=== PATIENT | female | born 1975 | race Caucasian/White ===

== ENCOUNTER 2021-01-22 08:14 | Outpatient (REF) | payer BC, SELFPAY ==
[2021-01-22 14:33] LABS: Anion Gap 9.3 mmol/L (3-11); BUN 9 mg/dL (7-18); CO2 26.7 mmol/L (21.0-32.0); CREATININE 0.7 mg/dL (0.55-1.02); Calcium 8.4 mg/dL (8.5-10.1); Calculated LDL 144 mg/dL (<100); Chloride 105 mmol/L (98-107); Cholesterol 226 mg/dL (<200); Glucose 91 mg/dL (74-106); HDL Cholesterol 53 mg/dL (40-60); Potassium 3.7 mmol/L (3.5-5.1); Sodium 141 mmol/L (136-145); TSH (W/Ref FT4) 1.16 uIU/mL (0.36-3.74); Triglyceride 146 mg/dL (<150)
== END 2021-01-22 08:15 | disposition home or self-care (01) ==
LOC: NCHCN 08:14
PROVIDERS: Visit Provider Nurse Practitioner Family
DX: Z00.00 Encounter for general adult medical examination without abnormal findings (principal); Z13.29 Encounter for screening for other suspected endocrine disorder; Z13.220 Encounter for screening for lipoid disorders; G43.809 Other migraine, not intractable, without status migrainosus; I63.89 Other cerebral infarction
CPT/HCPCS: 80048; 80061; 84443

== ENCOUNTER 2021-12-29 03:04 | Emergency (ER) | payer BC, SELFPAY ==
[2021-12-29] VITALS (22 sets, daily range): BP systolic 130–154; BP diastolic 68–82; PULSE 65–102; RESP 8–16; TEMP 36.2; O2SAT 98–100
--- NOTE | 2021-12-29 03:23 | ED.GENADUL_ITS ---
Discharge Plan Disposition Patient Disposition: HOME Condition: Stable Discharge Details Clinical Impression: Hypokalemia, Hypomagnesemia Primary Care Provider: Unknown,Unknown ED Provider: German Hussein Home Meds and New Rx's Prescriptions: Continued riboflavin (vitamin B2) 100 mg Tablet 200 mg PO DAILY coenzyme Q10 [CoQ-10] 100 mg Capsule 300 mg PO DAILY magnesium citrate 100 mg Tablet 750 mg PO DAILY Discharge Instructions Instructions: Hypokalemia (ED), Hypomagnesemia (ED) Additional Instructions: your potassium and magnesium levels were mildly low follow up with your primary care provider in 1-2 weeks if you feel more ill, have difficulty breathing or severe pain return to the emergency department Medical Decision Making 46 yo female with no chronic medical problems comes in with complaints of frequent urination and feeling shaky. She states this started tonight after she consumed a lot of sugar and is worried about diabetes. Her sugar on arrival is 101 by fingerstick. She denies any fevers, chills, chest pain or abdominal pain, no vomit, no rashes. She arrives stable though appears anxious. She is caox4 and has no focal motor or sensation deficits, clear lung souds and soft abdomen. I suspect this could be anxiety and unlikely diabetic issue given normal blood glucose. Will check cbc, cmp and reassess. She has no chest pain or pressure so doubt entities such as acs, pe or dissection. no motor or sensation deficits, nih of 0 so doubt cva. labs show mildly low k and mag otherwise unremarkable. She is stable, resting in no distress in the stretcher and appears less anxious. Given reassuring workup feel she is stable for d/c and can f/u with pcp, will have her increase dietary intake of k and mag and return precautions given Differential Diagnosis Differential Diagnosis: anxiety, uti, cystitis, electrolyte abnormality Lab Data Lab results reviewed: Yes I reviewed the patient's lab results. ECG Data Attestation: I personally reviewed and interpreted this ECG (s) as follows: Prior ECG tracings: not available for review Interpretation: sinus rhythm, rate of [address] t wave ischemic findings HPI General Mode of arrival: ambulatory . Date/Time Provider Initiated Documentation: 12/29/21 03:07 . Limitations to Documentation: no limitations . Information obtained by: patient . History of Present Illness 46 year old F presents to the emergency department with the chief complaint of frequent urination, described as moderate, and it has been constant. No relieving factors improve symptom(s), No exacerbating factors reported . Patient notes other (feels shaky). Patient did receive the following treatments prior to arrival, none Related Data Home Medications Medication Instructions Recorded Confirmed coenzyme Q10 100 mg capsule 300 mg PO DAILY 12/29/21 12/29/21 (CoQ-10) magnesium citrate 100 mg tablet 750 mg PO DAILY 12/29/21 12/29/21 riboflavin (vitamin B2) 100 mg 200 mg PO DAILY 12/29/21 12/29/21 tablet Allergies Allergy/AdvReac Type Severity Reaction Status Date / Time No Known Drug Allergies Allergy Unverified 12/29/21 03:32 milk AdvReac Mild Unverified 12/29/21 03:32 General Stated Complaint: Diabetes JUSTUS: 3 Review of Systems All systems reviewed & are unremarkable except as noted in HPI and below Constitutional Constitutional: Denies chills and Denies fever(s) Gastrointestinal Gastrointestinal: Denies abdominal pain, Denies nausea and Denies vomiting Genitourinary Genitourinary: Denies dysuria Integumentary/Breasts Skin/Breast: Denies rash PFSH All Active Problems (Updated 12/29/21 @ 04:59 by German Hussein MD) Hypokalemia (Acute) Hypomagnesemia (Acute) Social History Smoking/Tobacco Use Status: Never Smoking risk assessment performed?: Yes Alcohol Intake: former Substance use type: does not use Exam Const General: anxious Orientation: alert HENMT Head: normal to inspection Ears: external ears normal General nose exam: external nose normal Mouth: moist mucous membranes Eyes General: appearance normal, both eyes and all related structures Neck Neck: normal visual inspection Resp Effort & Inspection: normal respiratory effort and able to speak in complete sentences Cardio Rate: regular rate Skin General skin exam: no rashes or lesions noted Neuro General: patient alert and patient oriented x3 Extrem General: normal to inspection Psych Mental Status: mental status grossly normal Course Vital Signs Vital signs: Vital Signs Temperature 36.2 C L 12/29/21 03:11 Pulse 97 H 12/29/21 03:11 Respiratory Rate 16 12/29/21 03:11 Blood Pressure 154/82 H 12/29/21 03:11 Pulse Oximetry 100 12/29/21 03:11 Temperature 36.2 C L 12/29/21 03:11 Pulse 97 H 12/29/21 03:11 Respiratory Rate 16 12/29/21 03:11 Respiratory Effort Non-Labored 12/29/21 03:14 Blood Pressure 154/82 H 12/29/21 03:11 Blood Pressure Position Sitting 12/29/21 03:11 Pulse Oximetry 100 12/29/21 03:11 Oxygen Delivery Method Room Air 12/29/21 03:11 Oxygen Flow Rate 0 12/29/21 03:11
[2021-12-29] MEDS: Normal Saline 1,000 ML 1000 ML IV (03:27)
--- NOTE | 2021-12-29 03:32 | NUR.NOTE ---
Nursing Note: Patient declined COVID test.
[2021-12-29 03:37] LABS: Abs Immature Grans 0.02 10^3/uL (0.0-0.06); Absolute Basophil Count 0.04 10^3/uL (0.0-0.2); Absolute Eosinophil Count 0.16 10^3/uL (0.0-0.7); Absolute Lymphocyte Count 4.73 10^3/uL (1.2-3.4); Absolute Monocyte Count 0.83 10^3/uL (0.1-0.8); Absolute Neutrophil Count 5.34 10^3/uL (1.2-6.7); Basophils % 0.4; Eosinophils % 1.4; HCT 42.9 % (36.0-46.0); Immature Grans % 0.2; Lymphocytes % 42.5; MCH 28.4 pg (27.0-33.0); MCHC 32.6 % (32.0-36.0); MCV 87 fL (80-95); MPV 9.6 fL (8.0-11.0); Monocytes % 7.5; Platelet Count 299 10^3/uL (130-400); RBC 4.93 10^6/uL (3.93-5.22); RDW 12.7 % (11.7-14.6); RDW-SD 40.3 fL; WBC 11.13 10^3/uL (4.4-10.8)
[2021-12-29 03:42] LABS: BE (Venous) -3 mmol/L (-2-3); HCO3 (Venous) 23 mmol/L (23-28); O2 Sat (Venous) 84 %; TCO2 (Venous) 24 mmol/l (24-29); pCO2 (Venous) 40 mmHg (41-51); pH (Venous) 7.37 (7.31-7.41); pO2 (Venous) 50 mmHg
--- NOTE | 2021-12-29 03:45 | RT.EKG_ITS ---
APPROVED REPORT Exam: Resting ECG Reason for Exam: tremors Patient Location: E HR:70 bpm ECG Measurements Heart Rate 70 AXIS MI 196 P 61 QRSd 81 QRS 38 QT 410 T 28 QTc 442 Conclusion Sinus rhythm...normal P axis, V-rate 60- 99
[2021-12-29 03:52] LABS: ALT 18 U/L (14-59); AST 12 U/L (15-37); Albumin 4.1 g/dL (3.4-5.0); Alkaline Phosphatase 79 U/L (46-116); Anion Gap 10.1 mmol/L (3-11); BUN 13 mg/dL (7-18); Bilirubin, Total 0.5 mg/dL (0.2-1.0); CO2 24.9 mmol/L (21.0-32.0); CREATININE 0.8 mg/dL (0.55-1.02); Calcium 8.7 mg/dL (8.5-10.1); Chloride 103 mmol/L (98-107); Estimated GFR 91.97 (mL/min/1.73m2); Glucose 114 mg/dL (74-106); Sodium 138 mmol/L (136-145)
[2021-12-29 03:54] LABS: ETHANOL BLOOD < 3.0 mg/dL (<10)
[2021-12-29 03:57] LABS: Lipase 130 U/L (73-393); Magnesium 1.7 mg/dL (1.8-2.4); Troponin I < 50 ng/L (<or=60)
[2021-12-29 04:30] LABS: Bilirubin Negative (Negative); Blood Negative (Negative); Clarity Clear (Clear); Glucose Negative (Negative); Ketones Negative (Negative); Leukocyte Esterase Negative (Negative); Nitrite Negative (Negative); Urobilinogen 0.2 EU/dL (Up TO 0.2)
[2021-12-29 04:44] LABS: TSH (W/Ref FT4) 3.35 uIU/mL (0.36-3.74)
== END 2021-12-29 05:34 | disposition home or self-care (01) ==
PROVIDERS: Emergency Provider Emergency Medicine
DX: E87.6 Hypokalemia (principal); E83.42 Hypomagnesemia
CPT/HCPCS: 36415; 36416; 80053; 81025; 82805; 82962; 83690; 87635; 93005; 96360; 96361; 99284; 80320; 81003; 83735; 84443; 84484; 85025; 93010

== ENCOUNTER 2022-02-14 00:12 | Outpatient (CLI) | payer BC, SELFPAY ==
--- NOTE | 2022-02-14 | DI.MRI_ITS ---
Exam(s) MR LOWER JOINT LT WO EXAM: MR LOWER JOINT LT WO CLINICAL HISTORY: TARSAL TUNNEL SYNDROME, LT,G57.52,LT HEEL PAIN,,M79.672 TECHNIQUE: Multiplanar multisequence MRI was performed without intravenous contrast. COMPARISON: DX Foot L from 12/06/2021 FINDINGS: SKIN: No evidence of ulcer nor subcutaneous tract. BONES/JOINTS: No evidence of fracture nor bone contusion. Mild amount of increased fluid in the tibi otalar joint. The talar dome appears unremarkable. The ankle mortise is maintained. There is no ev idence of para-articular ganglion.There is no evidence of osseous tarsal coalition. LIGAMENTS: Syndesmotic anterior and posterior tibiofibular ligaments appear intact. Anterior talofibu lar ligament appears intact but slightly thinner than expected in this age group. There is, however, no abnormal signal in this ligament nor in the anterolateral gutter. The posterior talofibular liga ment appears unremarkable. On the medial aspect of the ankle the deltoid ligament appears intact. SINUS TARSI: There is effacement of the normal fat signal in this space. Interosseous ligament is in tact. There is no evidence of sinus tarsi ganglion cyst. ANTEROLATERAL GUTTER:There is no abnormal signal/abnormal tissue in this space. MUSCULOTENDINOUS STRUCTURES: Achilles tendon: Mild increased signal but no thickening to suggest chronic tendinitis. No high-grad e tear. There is some mild fluid in the pre Achilles-retrocalcaneal bursa. Plantar fascia: There is some mild increased intrasubstance signal in the plantar fascia and mild int raosseous edema in the inferior calcaneus. Small inferior calcaneal spur noted. There is no abnorma l nodularity in the plantar fascia. Anterior Extensor tendons: Unremarkable. Medial Tendons: Posterior Tibialis: Unremarkable. No tear or tenosynovitis evident. Flexor Digitorum longus: Unremarkable. No tear or tenosynovitis evident. Flexor Hallicus longus: Unremarkable. No tear or tenosynovitis evident. Lateral Tendons: There is very mild increased fluid within the peroneus longus and brevis tendon javier ths. No tears of these tendons evident. SOFT TISSUES: Unremarkable. OTHER FINDINGS: No evidence of osseous tarsal coalition. No abnormal intraosseous signal in the bone s of the midfoot and visualized metatarsals. IMPRESSION: 1. Mild increased signal in a non thickened Achilles tendon and small amount of fluid in the pre Achi lles-retrocalcaneal bursa. 2. Some increased lung truly orientated signal within the plantar fascia at level of inferior calcane al spur where there is also some mild increased intraosseous signal at this level. Correlation with any clinical findings of plantar fasciitis recommended. 3. Mild thinning of the anterior talofibular ligament which may be related to prior non recent versio n injury trauma. There is no abnormal signal at this location on today's study nor abnormal signal i n the anterolateral gutter of the ankle. Posterior talofibular ligament appears unremarkable. 4. Mild tenosynovitis of the peroneus longus and brevis tendons at the malleolar level. However, th ere are no tears of these tendons evident. DATA REPOSITORY:
== END 2022-02-14 00:32 ==
PROVIDERS: Visit Provider Student in an Organized Health Care Education/Training Program
DX: M79.672 Pain in left foot (principal); G57.52 Tarsal tunnel syndrome, left lower limb
CPT/HCPCS: 73721

== ENCOUNTER 2022-05-17 10:00 | Emergency (ER) | payer BC, SELFPAY ==
[2022-05-17 10:03] VITALS: BP 162/91; PULSE 102; RESP 18; TEMP 36.7; O2SAT 100
[2022-05-17 10:12] VITALS: RESP 18
--- NOTE | 2022-05-17 10:15 | DI.CT_ITS ---
Exam(s) CT ABDOMEN PELVIS W EXAM: CT ABDOMEN PELVIS W CLINICAL HISTORY: left side abd pain. TECHNIQUE: Imaging Protocol: Axial computed tomography images with coronal and sagittal reformatted images were created and reviewed CONTRAST MATERIAL: Intravenous: Omnipaque-350 100cc Oral: None COMPARISON: No exams were available for comparison FINDINGS: VISUALIZED LUNG BASES: No nodules nor pleural effusions evident. ABDOMEN: There is no ascites. LIVER: There are no focal hepatic lesions evident. No dilated intrahepatic ducts. GALLBLADDER/BILIARY: No obvious gallbladder pathology. CBD is not dilated. PANCREAS: No evidence of pancreatic mass nor dilatation of the pancreatic duct. SPLEEN: Spleen is not enlarged. No obvious intrasplenic lesions. Splenic and portal veins are paten t. ADRENALS: There are no significant adrenal masses. KIDNEYS:No cysts evident. No solid renal masses. There is a solitary 2-3 millimeter calculus at the midpole level of the right kidney. No calculi seen in the ureters nor within the urinary bladder.. ABDOMINAL AORTA: Abdominal aorta is not enlarged. LYMPH NODES:There is no retroperitoneal nor paraaortic adenopathy. ABDOMINAL WALL: No evidence of significant anterior abdominal wall nor inguinal hernia. GI: There is no evidence of bowel obstruction, free air, nor abscess. PELVIS: GI: No evidence of appendicitis.No evidence of sigmoid diverticulitis. LYMPH NODES: There is no intrapelvic nor inguinal adenopathy. REPRODUCTIVE: There is a 2.7 x 2.6 x 2.5 cm cyst in left ovary. Right ovary unremarkable. Uterus un remarkable. No free fluid. URINARY BLADDER: No calculi nor obvious masses evident OSSEOUS: No fractures and no significant osseous lesions. IMPRESSION: 1. There is a solitary nonobstructive 3 millimeter calculus at the midpole level of the right kidney. No other renal findings. No calculi in the urinary bladder. 2. There is a 2.7 cm cyst in left ovary. No other adnexal findings. No free fluid in the pelvis. 3. No acute findings evident. 4. RADIATION DOSE DELIVERED: 1,454.98mGy.cm Total DLP DATA REPOSITORY: All CT scans at this facility are submitted to the National Radiology Data Registry (NRDR) Dose Index Registry (DIR) with the [employer] (A[employer]). RADIATION OPTIMIZATION: All CT scans at this facility use at least one of these dose optimization te chniques: automated exposure control; mA and/or kV adjustment per patient size (includes targeted exa ms where dose is matched to clinical indication); or iterative reconstruction.
--- NOTE | 2022-05-17 10:23 | W.ED.GENAD ---
Discharge Plan Disposition Patient Disposition: Home Condition: Stable Discharge Details Clinical Impression: Bloody stools Primary Care Provider: Jada Hanna ED Provider: Seun Garcia Home Meds and New Rx's Prescriptions: New potassium chloride 10 mEq capsule, extended release 10 meq PO DAILY Qty: 7 0RF Continued riboflavin (vitamin B2) 100 mg Tablet 200 mg PO DAILY coenzyme Q10 [CoQ-10] 100 mg Capsule 300 mg PO DAILY magnesium citrate 100 mg Tablet 750 mg PO DAILY cholecalciferol (vitamin D3) 100 mcg (4,000 unit) Capsule 100 mcg PO DAILY Discharge Instructions Instructions: Rectal Bleeding (ED) Additional Instructions: Please continue to monitor your symptoms and if you have any significant worsening of your symptoms, signs of rectal hemorrhaging, fever chills or worsening abdominal pain feel free to return the emergency department for reassessment and further evaluation as needed. Otherwise continue to take your medications as prescribed and at your primary care visit later this week discussed with the your persistent slightly low potassium and your rectal bleeding. Referrals: Jada Hanna [Primary Care Provider] - 05/22/22 (Keep your appointment as previously arranged) Medical Decision Making Patient presenting to the emergency department for chief complaint of GI bleed and abdominal pain. Patient reports this morning with bowel movement she had bright red blood in toilet with morning bowel movement. She does states she noted a little bit a couple days ago but did not think much of it. Today's per her report was much more significant. She has felt off for the past couple months and not herself. Does endorse some mild left sided abdominal pain otherwise denies all symptoms. Physical exam is unremarkable shows no reproducible abdominal tenderness, no CVA tenderness, otherwise unremarkable exam. Patient does state history of ovarian cyst but denies any vaginal symptoms, history of kidney stones but again denies urinary symptoms, denies all other past medical history states she is otherwise healthy. She has not had a colonoscopy so unaware of any GI issues and no reported family pertinent history. Will order labs including urinalysis will perform Hemoccult rectal exam, and CT imaging. Patient denies any need for interventions pending results but will continue to monitor. Review of CBC shows no signs of anemia and actually shows elevated RBCs and hematocrit all other values within normal limits. CMP shows slightly reduced potassium at 3.4, otherwise unremarkable CMP, magnesium within normal limits, normal lipase, normal coagulation studies, patient is not and urine is unremarkable/nondiagnostic. Rectal exam unremarkable for any obvious source of bleeding and Hemoccult card was negative. Will perform CT imaging. CT imaging reveals no acute findings. Does state Left adnexal cyst, Fatty infiltration liver, Nonobstructive right nephrolithiasis. I do not feel any of these are contributing factors to patient's presenting symptoms. Given stable vital signs, no tachycardia no hypotension no signs of anemia I do feel the patient is able to follow-up on outpatient basis for further evaluation of her episodes of rectal bleeding. At this time I do not feel this is an infectious source, no trauma, and no obvious medication or supplement reaction. Did instruct patient not to take any NSAIDs. I did thoroughly discussed with patient return and follow-up precautions especially for worsening symptoms. She does report that she already has a primary care visit arranged for this which I informed her to discuss her low potassium and bloody stools. After discussion of diagnosis and plan of care patient has no further needs, questions, or concerns and states clear understanding to return to the emergency department for any worsening symptoms. This documentation was generated using [employer] dictation system, please disregard any oddities of phrase or misspellings. Medical Records Medical records reviewed: Yes I reviewed the patient's medical records. Medical records narrative: Reviewed previous emergency department visit where patient did have similar complaint of not feeling right. She was noted to have hypokalemia and hypomagnesemia. These were stable for patient to be able to take p.o. meds and be discharged. Imaging Data Radiologic Study: Attestation: I personally reviewed and interpreted this imaging study as follows: Imaging: CT Scan Radiologist's impression: Exam: CT Abdomen And Pelvis With Contrast Exam date and time: 05/17/2022 11:09 AM Age: 46 years old Clinical indication: Abdominal pain; Acute; Patient HX: Blood in stool TECHNIQUE: Imaging protocol: Computed tomography of the abdomen and pelvis with contrast. Contrast material: OMNI 350; Contrast volume: 100 ml; Contrast route: INTRAVENOUS (IV); COMPARISON: LOWER JOINT LT WO 02/14/2022 7:58 AM FINDINGS: Diaphragm: Small hiatal hernia. Liver: Fatty infiltration of the liver. The liver measures 17.7 cm Gallbladder and bile ducts: Normal. No calcified stones. No ductal dilation. Pancreas: Normal. No ductal dilation. Spleen: Normal. No splenomegaly. Adrenal glands: Normal. No mass. Kidneys and ureters: Nonobstructive right nephrolithiasis. No hydronephrosis bilaterally. Stomach and bowel: No dilatation or obstruction of large or small bowel. Appendix: Normal appendix. Intraperitoneal space: Unremarkable. No free air. No significant fluid collection. Vasculature: Unremarkable. No abdominal aortic aneurysm. Lymph nodes: Unremarkable. No enlarged lymph nodes. Urinary bladder: Unremarkable as visualized. Reproductive: Mild line uterus. Left adnexal cyst measuring 2.6 cm. Bones/joints: Unremarkable. No acute fracture. Soft tissues: Fat containing umbilical hernia. IMPRESSION: 1. No acute findings. 2. Left adnexal cyst. 3. Fatty infiltration liver. 4. Nonobstructive right nephrolithiasis. HPI General Mode of arrival: ambulatory. Date/Time Provider Initiated Documentation: 05/17/22 10:01. Limitations to Documentation: no limitations. Information obtained by: patient, family, RN notes reviewed and old records reviewed. History of Present Illness 46 year old F presents to the emergency department with the chief complaint of Abdominal pain, GI bleed, described as mild, with intensity rated at 3. Quality is described as aching, and is localized to the abdomen and left. Patient started experiencing this day(s) (2) and it has been intermittent. No relieving factors improve symptom(s), No exacerbating factors reported . Patient notes no other symptoms.. Patient did receive the following treatments prior to arrival, none Related Data Home Medications Medication Instructions Recorded Confirmed coenzyme Q10 100 mg capsule 300 mg PO DAILY 12/29/21 05/17/22 (CoQ-10) magnesium citrate 100 mg tablet 750 mg PO DAILY 12/29/21 05/17/22 riboflavin (vitamin B2) 100 mg 200 mg PO DAILY 12/29/21 05/17/22 tablet cholecalciferol (vitamin D3) 100 100 mcg PO DAILY 05/17/22 05/17/22 mcg (4,000 unit) capsule potassium chloride 10 mEq 10 meq PO DAILY #7 caps 05/17/22 capsule,extended release Previous Rx's Medication Instructions Recorded potassium chloride 10 mEq 10 meq PO DAILY #7 caps 05/17/22 capsule,extended release Allergies Allergy/AdvReac Type Severity Reaction Status Date / Time No Known Drug Allergies Allergy Unverified 12/29/21 03:32 milk AdvReac Mild Unverified 05/17/22 10:08 General Stated Complaint: GenMedical JUSTUS: 3 Review of Systems Constitutional Constitutional: Denies chills, Denies fever(s), Reports malaise and Denies poor appetite Cardiovascular Cardiovascular: Denies chest pain and Denies dyspnea Respiratory Respiratory: Denies cough and Denies dyspnea Gastrointestinal Gastrointestinal: Reports as per HPI, Reports abdominal pain, Denies melena, Reports hematochezia, Denies change in bowel habits, Denies constipation, Denies diarrhea, Denies nausea and Denies vomiting Genitourinary Genitourinary: Denies hematuria, Denies pelvic pain, Reports flank pain and Denies vaginal discharge Musculoskeletal Musculoskeletal: Denies back pain Integumentary/Breasts Skin/Breast: Denies rash PFSH All Active Problems (Updated 05/17/22 @ 12:17 by Seun Garcia NP) Bloody stools (Acute) Social History Smoking/Tobacco Use Status: Never Smoking risk assessment performed?: Yes Alcohol Intake: former Drug use: Never Substance use type: does not use Do you feel safe at home: Yes Do you feel safe in your relationship?: Yes Exam Const General: cooperative Orientation: alert, awake and oriented x3 Resp Effort & Inspection: normal respiratory effort and able to speak in complete sentences Auscultation: clear to auscultation bilaterally Cardio Rate: regular rate Rhythm: regular rhythm Heart Sounds: S1 normal and S2 normal GI Palpation: soft, no hepatosplenomegaly, not firm, no guarding, no masses, no pulsatile masses, not rigid, no splenomegaly and nontender Auscultation: normal bowel sounds Rectal Exam - female: visual inspection normal, normal sphincter tone, No abnormal stool, No fecal impaction, No fissure, heme negative stool, No hemorrhoids, No tenderness and other (RN doctor of podiatric medicine present for exam) Back/Spine/Pelvis Back: no CVA tenderness Neuro General: patient alert, patient awake, patient oriented x3, gait normal and moves all extremities Course Vital Signs Vital signs: Vital Signs Temperature 36.7 C 05/17/22 10:03 Pulse 102 H 05/17/22 10:03 Respiratory Rate 18 05/17/22 10:03 Blood Pressure 162/91 H 05/17/22 10:03 Pulse Oximetry 100 05/17/22 10:03 Temperature 36.7 C 05/17/22 10:03 Pulse 102 H 05/17/22 10:03 Respiratory Rate 18 05/17/22 10:12 Respiratory Effort Normal 05/17/22 10:12 Respiratory Depth Normal 05/17/22 10:12 Respiratory Pattern Normal 05/17/22 10:12 Blood Pressure 162/91 H 05/17/22 10:03 Blood Pressure Position Sitting 05/17/22 10:03 Pulse Oximetry 100 05/17/22 10:03 Oxygen Delivery Method Room Air 05/17/22 10:03 Oxygen Flow Rate 0 05/17/22 10:03 Pain Level 3 05/17/22 10:03
[2022-05-17 10:35] LABS: Abs Immature Grans 0.02 10^3/uL (0.0-0.06); Absolute Basophil Count 0.03 10^3/uL (0.0-0.2); Absolute Eosinophil Count 0.09 10^3/uL (0.0-0.7); Absolute Lymphocyte Count 3.07 10^3/uL (1.2-3.4); Absolute Monocyte Count 0.61 10^3/uL (0.1-0.8); Absolute Neutrophil Count 5.27 10^3/uL (1.2-6.7); Basophils % 0.3; HCT 47.1 % (36.0-46.0); HGB 15.3 g/dL (11.2-15.7); Immature Grans % 0.2; Lymphocytes % 33.8; MCH 28.4 pg (27.0-33.0); MCHC 32.5 % (32.0-36.0); MCV 87 fL (80-95); MPV 9.3 fL (8.0-11.0); Monocytes % 6.7; Platelet Count 362 10^3/uL (130-400); RBC 5.39 10^6/uL (3.93-5.22); RDW 13.1 % (11.7-14.6); RDW-SD 41.6 fL; WBC 9.09 10^3/uL (4.4-10.8)
[2022-05-17 10:48] LABS: PTT Activated 28.4 sec (21.5-31.9); Prothrombin Time 9.9 sec (9.3-11.0)
[2022-05-17 10:50] LABS: ALT 17 U/L (14-59); AST 18 U/L (15-37); Albumin 4.2 g/dL (3.4-5.0); Alkaline Phosphatase 66 U/L (46-116); Anion Gap 8.4 mmol/L (3-11); BUN 8 mg/dL (7-18); CO2 27.6 mmol/L (21.0-32.0); CREATININE 0.7 mg/dL (0.55-1.02); Calcium 9.3 mg/dL (8.5-10.1); Chloride 103 mmol/L (98-107); Estimated GFR 107.95 (mL/min/1.73m2); Glucose 103 mg/dL (74-106); Lipase 45 U/L (16-77); Magnesium 1.8 mg/dL (1.8-2.4); Potassium 3.4 mmol/L (3.5-5.1); Sodium 139 mmol/L (136-145)
[2022-05-17 11:00] LABS: Bilirubin Negative (Negative); Blood Negative (Negative); Clarity Clear (Clear); Glucose Negative (Negative); Ketones Negative (Negative); Leukocyte Esterase Negative (Negative); Nitrite Negative (Negative); Urobilinogen 0.2 EU/dL (Up TO 0.2); pH 6.5 (5-8)
[2022-05-17] MEDS: Omnipaque 350 MG/ML 100 ML BTL IJ (11:03)
[2022-05-17] MEDS: Normal Saline - Diluent 50 ML VIAL IJ (11:04)
[2022-05-17 11:36] VITALS: BP 153/89; PULSE 86; PULSE 89; RESP 16
--- NOTE | 2022-05-17 11:51 | DI.VRAD_ITS ---
PROCEDURE INFORMATION: Exam: CT Abdomen And Pelvis With Contrast Exam date and time: 05/17/2022 11:09 AM Age: 46 years old Clinical indication: Abdominal pain; Acute; Patient HX: Blood in stool TECHNIQUE: Imaging protocol: Computed tomography of the abdomen and pelvis with contrast. Contrast material: OMNI 350; Contrast volume: 100 ml; Contrast route: INTRAVENOUS (IV); COMPARISON: MR LOWER JOINT LT WO 02/14/2022 7:58 AM FINDINGS: Diaphragm: Small hiatal hernia. Liver: Fatty infiltration of the liver. The liver measures 17.7 cm Gallbladder and bile ducts: Normal. No calcified stones. No ductal dilation. Pancreas: Normal. No ductal dilation. Spleen: Normal. No splenomegaly. Adrenal glands: Normal. No mass. Kidneys and ureters: Nonobstructive right nephrolithiasis. No hydronephrosis bilaterally. Stomach and bowel: No dilatation or obstruction of large or small bowel. Appendix: Normal appendix. Intraperitoneal space: Unremarkable. No free air. No significant fluid collection. Vasculature: Unremarkable. No abdominal aortic aneurysm. Lymph nodes: Unremarkable. No enlarged lymph nodes. Urinary bladder: Unremarkable as visualized. Reproductive: Mild line uterus. Left adnexal cyst measuring 2.6 cm. Bones/joints: Unremarkable. No acute fracture. Soft tissues: Fat containing umbilical hernia. IMPRESSION: 1. No acute findings. 2. Left adnexal cyst. 3. Fatty infiltration liver. 4. Nonobstructive right nephrolithiasis. Dictated and Authenticated by: Александр Gannon MD. Ordering:JJ Kohli MD
[2022-05-17] MEDS: Potassium Chloride 10 MEQ TABCR PO (12:05)
== END 2022-05-17 12:29 | disposition home or self-care (01) ==
PROVIDERS: Emergency Provider Nurse Practitioner Family; PCP Nurse Practitioner Family
DX: K92.1 Melena (principal); E87.6 Hypokalemia; R71.8 Other abnormality of red blood cells; N20.0 Calculus of kidney; K76.0 Fatty (change of) liver, not elsewhere classified; N83.8 Other noninflammatory disorders of ovary, fallopian tube and broad ligament
CPT/HCPCS: 36415; 80053; 81025; 83690; 96365; 99285; 74177; 81003; 83735; 85025; 85610; 85730; 99284; J3490

== ENCOUNTER 2022-06-27 16:22 | Outpatient (REF) | payer BC, SELFPAY ==
[2022-06-27 18:32] LABS: HCT 43.4 % (36.0-46.0); HGB 13.9 g/dL (11.2-15.7); MCH 27.9 pg (27.0-33.0); MCV 87 fL (80-95); MPV 10.2 fL (8.0-11.0); Platelet Count 314 10^3/uL (130-400); RBC 4.98 10^6/uL (3.93-5.22); RDW 13.1 % (11.7-14.6); RDW-SD 41.7 fL; WBC 8.67 10^3/uL (4.4-10.8)
[2022-06-27 18:46] LABS: Hemoglobin A1C 5.8 % (<5.7)
[2022-06-27 18:51] LABS: ALT 17 U/L (14-59); AST 18 U/L (15-37); Alkaline Phosphatase 68 U/L (46-116); Anion Gap 6.6 mmol/L (3-11); BUN 12 mg/dL (7-18); Bilirubin, Total 0.9 mg/dL (0.2-1.0); CO2 29.4 mmol/L (21.0-32.0); CREATININE 0.7 mg/dL (0.55-1.02); Calcium 9.1 mg/dL (8.5-10.1); Chloride 106 mmol/L (98-107); Estimated GFR 107.95 (mL/min/1.73m2); Glucose 99 mg/dL (74-106); Potassium 4.4 mmol/L (3.5-5.1); Sodium 142 mmol/L (136-145); TSH 0.87 uIU/mL (0.36-3.74)
== END 2022-06-27 16:23 | disposition home or self-care (01) ==
LOC: NCHCN 16:22
PROVIDERS: PCP Nurse Practitioner Family; Visit Provider Family Medicine
DX: R35.0 Frequency of micturition (principal); R63.1 Polydipsia
CPT/HCPCS: 80053; 85027; 83036; 84443

== ENCOUNTER 2022-07-15 14:04 | Outpatient (REF) | payer BC, SELFPAY ==
[2022-07-15 17:59] LABS: POTASSIUM,URINE RANDOM 32 mmol/L; Sodium, Urine 55 mmol/L
[2022-07-15 18:15] LABS: CLEAVED CELLS 127 mmol/24h (40-220); Creatinine,24hr Ur 1.35 g/24hr (0.60-1.80); SAMPLE LIPEMIA CHECK 2300 ml; Total Volume 2300 ml
[2022-07-16 13:08] LABS: Misc Referral (UVM) See Comments
[2022-07-16 17:33] LABS: Chloride Urine 24hr 106 mmol/24hrs (110-250); Timed Urine Volume 2300 mL
[2022-07-16 17:36] LABS: Osmolality, Urine 432 mOsm/kg (150-1150)
[2022-07-16 17:37] LABS: Timed Urine Volume 2300 mL; Urea Nitrogen Random Urine 707 mg/dL (See Note); Urean Nitrogen Urine 24hr 16 g/24hrs (12-20)
== END 2022-07-15 14:05 | disposition home or self-care (01) ==
LOC: NCHCN 14:04
PROVIDERS: PCP Nurse Practitioner Family; Visit Provider Family Medicine
DX: R35.0 Frequency of micturition (principal); R63.1 Polydipsia
CPT/HCPCS: 82945; 83935; 81050; 82436; 82570; 84133; 84300; 84540

== ENCOUNTER → 2023-03-23 13:16 | Outpatient (CLI) | payer MEDICAID, SELFPAY ==
--- NOTE | 2023-03-23 13:00 | DI.RAD_ITS ---
Exam(s) XR LUMBAR SPINE COMPLETE EXAM: XR LUMBAR SPINE COMPLETE CLINICAL HISTORY: lower back and right leg pain M54.16 RADICULOPATHY LUMBAR REGION. TECHNIQUE: 2D digital imaging was performed of the lumbar spine. Six images were obtained. AP, lat eral, right oblique, left oblique and L5-S1 spot views were obtained. COMPARISON: No exams were available for comparison FINDINGS: Examination limited by patient body habitus. BONES: No fracture or destructive lesion. Endplate osteophytes are present throughout the lumbar spin e. No facet hypertrophy identified. DISKS: Intervertebral disc spaces are maintained. ALIGNMENT: Lumbar spinal alignment is within normal limits. No spondylolysis or spondylolisthesis. SOFT TISSUE: There are surgical clips seen in the left pelvis. IMPRESSION: Mild degenerative changes in the lumbar spine. DATA REPOSITORY: RADIATION DOSE DELIVERED:
== END ==
PROVIDERS: PCP Nurse Practitioner Family; Visit Provider Physician Assistant
DX: M54.16 Radiculopathy, lumbar region (principal)
CPT/HCPCS: 72110

== ENCOUNTER 2023-10-20 09:10 | Outpatient (CLI) | payer BC, SELFPAY ==
[2023-10-20 09:21] LABS: Hemoglobin A1C 5.8 % (<5.7)
[2023-10-20 09:41] LABS: ALT 18 U/L (14-59); AST 16 U/L (15-37); Albumin 4.1 g/dL (3.4-5.0); Alkaline Phosphatase 58 U/L (46-116); BUN 9 mg/dL (7-18); Bilirubin, Total 0.99 mg/dL (0.2-1.0); CREATININE 0.7 mg/dL (0.55-1.02); Calcium 9.2 mg/dL (8.5-10.1); Calculated LDL 118 mg/dL (<100); Chloride 103 mmol/L (98-107); Cholesterol 203 mg/dL (<200); Estimated GFR 106.62 (mL/min/1.73m2); Glucose 103 mg/dL (74-106); HDL Cholesterol 62 mg/dL (40-60); Potassium 3.8 mmol/L (3.5-5.1); Sodium 141 mmol/L (136-145); Total Protein 8.1 g/dL (6.4-8.2); Triglyceride 116 mg/dL (<150)
== END 2023-10-20 09:11 | disposition home or self-care (01) ==
LOC: LBO 09:11
PROVIDERS: PCP Physician Assistant; Visit Provider Physician Assistant
DX: Z13.220 Encounter for screening for lipoid disorders (principal); Z83.3 Family history of diabetes mellitus
CPT/HCPCS: 36415; 80053; 80061; 83036

== ENCOUNTER 2024-06-08 13:18 | Emergency (ER) | payer BC, SELFPAY ==
[2024-06-08 13:30] VITALS: BP 191/124; PULSE 91; RESP 16; TEMP 36.9; O2SAT 98
--- NOTE | 2024-06-08 14:00 | DI.CT_ITS ---
Exam(s) CT ABDOMEN PELVIS CTA EXAM: CT ABDOMEN PELVIS CTA CLINICAL HISTORY: gi bleeding, eval for mesenteric ischemia. TECHNIQUE: Imaging Protocol: Axial CT angiography was performed with multi-slice acquisition and m ulti-planar and/or 3D reconstructions. CONTRAST MATERIAL: Intravenous: Omnipaque 350 Contrast volume:100 mL Oral: / no COMPARISON: CT CT ABDOMEN PELVIS W from 05/17/2022 FINDINGS: Vascular Structures: Celiac Skippers:No evidence of stenosis. SMA: No evidence of stenosis. Renal Arteries: No evidence of stenosis. There are 2 arteries perfusing each kidney. Aorta: No aneurysm. No dissection. No significant stenosis. No atherosclerotic changes. Iliac Arteries: No evidence of stenosis. Common Femoral Arteries: No evidence of stenosis. Soft Tissues:Unremarkable. Lung bases:No acute findings. Tiny hiatal hernia. Liver: Normal size. Normal density. No measurable mass. Gallbladder and biliary tract: No evidence of calculi. No gallbladder wall thickening. No biliary di lation. Pancreas: Normal density, no abnormal calcifications or inflammatory process. Spleen: Normal. Kidneys: Normal size, contour and axis. No obstructive uropathy. No masses seen. Tiny nonobstructing stone in the mid left kidney. Adrenal glands: No masses seen. Bladder: Nearly empty. No gross wall thickening. No evidence of calculi. No evidence of mass. Bowel: No obstruction or bowel wall thickening. No evidence of diverticulosis. No site of GI bleedi ng identified. Appendix normal. Normal quantity of stool. Peritoneal cavity: No ascites. No focal collection. No mesenteric inflammatory response. Bones: No acute findings. Lymph nodes: Within normal limits. Reproductive: Unremarkable. IMPRESSION: Normal CT Angiogram of the Abdomen. No site of active GI bleeding identified. No bowel abnormality identified. RADIATION DOSE DELIVERED: Total DLP DATA REPOSITORY: All CT scans at this facility are submitted to the National Radiology Data Registry (NRDR) Dose Index Registry (DIR) with the [employer] (ACR). RADIATION OPTIMIZATION: All CT scans at this facility use at least one of these dose optimization te chniques: automated exposure control; mA and/or kV adjustment per patient size (includes targeted exa ms where dose is matched to clinical indication); or iterative reconstruction.
[2024-06-08] MEDS: Normal Saline 1,000 ML 1000 ML IV (14:10)
[2024-06-08 14:14] LABS: Lactate 1.2 mmol/L (<or=2.0)
[2024-06-08 14:16] LABS: Abs Immature Grans 0.04 10^3/uL (0.0-0.06); Absolute Basophil Count 0.05 10^3/uL (0.0-0.2); Absolute Monocyte Count 0.66 10^3/uL (0.1-0.8); Basophils % 0.4 %; Eosinophils % 0.6 %; HGB 14.5 g/dL (11.2-15.7); Immature Grans % 0.3 %; Lymphocytes % 27.6 %; MCH 28.6 pg (27.0-33.0); MCHC 32.2 % (32.0-36.0); MCV 89 fL (80-95); MPV 9.1 fL (8.0-11.0); Monocytes % 5.3 %; Neutrophils % 65.8 %; Platelet Count 342 10^3/uL (130-400); RBC 5.07 10^6/uL (3.93-5.22); RDW 13.1 % (11.7-14.6); RDW-SD 42.7 fL; WBC 12.41 10^3/uL (4.4-10.8)
[2024-06-08 14:17] LABS: Absolute Eosinophil Count 0.07 10^3/uL (0.0-0.7); Absolute Lymphocyte Count 3.43 10^3/uL (1.2-3.4); Absolute Neutrophil Count 8.17 10^3/uL (1.2-6.7)
[2024-06-08 14:30] LABS: PTT Activated 29.5 sec (20.6-30.2); Prothrombin Time 10.1 sec (9.1-11.1)
[2024-06-08 14:44] LABS: ALT 22 U/L (14-59); AST 16 U/L (15-37); Albumin 4.3 g/dL (3.4-5.0); Alkaline Phosphatase 64 U/L (46-116); Anion Gap 10.4 mmol/L (3-11); BUN 14 mg/dL (7-18); Bilirubin, Total 0.62 mg/dL (0.2-1.0); CO2 26.6 mmol/L (21.0-32.0); CREATININE 0.7 mg/dL (0.55-1.02); Calcium 9.5 mg/dL (8.5-10.1); Chloride 105 mmol/L (98-107); Estimated GFR 106.62 (mL/min/1.73m2); Glucose 93 mg/dL (74-106); Potassium 3.7 mmol/L (3.5-5.1); Sodium 142 mmol/L (136-145); Total Protein 8.4 g/dL (6.4-8.2)
--- NOTE | 2024-06-08 14:50 | ED.GENADUL_ITS ---
Discharge Plan Disposition Patient Disposition: Home Condition: Good Discharge Details Clinical Impression: Hematochezia Primary Care Provider: Anne Daly ED Provider: Yogesh Bardales Home Meds and New Rx's Prescriptions: New omeprazole 20 mg capsule,delayed release(DR/EC) 20 mg PO BID Qty: 60 0RF No Action riboflavin (vitamin B2) 100 mg Tablet 200 mg PO DAILY coenzyme Q10 [CoQ-10] 100 mg Capsule 300 mg PO DAILY magnesium citrate 100 mg Tablet 750 mg PO DAILY cholecalciferol (vitamin D3) 100 mcg (4,000 unit) Capsule 100 mcg PO DAILY potassium chloride 10 mEq capsule, extended release 10 meq PO DAILY Qty: 7 0RF Discharge Instructions Instructions: Bloody Stools, Adult ED Additional Instructions: At this time your workup has returned, your blood levels are normal, there is no evidence of blood coagulopathy. Your CT imaging does not show signs of any significant abnormality or active bleed. As we discussed together it is important to continue in the diagnostic evaluation. We have placed a referral with our surgeons for an outpatient colonoscopy. They will contact you for an appointment time. Please avoid any spicy foods significantly greasy foods or large quantities of meat products. Please keep your stool soft and continue with a high-fiber diet. Please take the antacid medication as prescribed. Is been sent to your pharmacy on file. If you notice any worsening of your symptoms, or any new symptoms such as vomiting, diarrhea, fever, chills, shortness of breath, chest pain, numbness, weakness, or fainting , please return immediately to the emergency department for reevaluation. Please follow up with your primary care provider as soon as possible for reassessment and reevaluation. As always, it was a pleasure participating in your medical care today. Referrals: Anne Daly [Primary Care Provider] - Elvin Maldonado MD [ [facility] STAFF PHYSICIAN] - [facility] General Date/Time Provider Initiated Documentation: 06/08/24 13:53 . HPI Narrative: 48-year-old female with no significant past medical history except for previous , back surgery, and endometrial ablation, presents today for evaluation of abdominal cramping and episode of bloody stools. Patient states that they got back from a trip to [place] 3 days ago. The drip had been excellent with no complications. No atypical food, aggressive or excessive exercise, or diarrhea. Today this morning when the patient had her bowel movement she noticed that there was some dark stool present which was atypical for her, and then later in the morning she developed a sudden burst of right flank pain at bed a few minutes later had a bowel movement of bright red blood. Pain resolved on its own, she did have 1 more episode of cramping in the right side of her abdomen, but this again resolved with no subsequent bowel movements. She denies personal or family history of Crohn's disease, ulcerative colitis, or personal history of diverticulosis or diverticulitis. No history of colon cancer. She denies fever or chills. She denies any vomiting. She denies any painful or searing or tearing sensation in her rectum during the bowel movements. No other complaints at this time. She is not on any blood thinners. SHe does not take daily aspirin. Related Data Home Medications ?Medication ?Instructions ?Recorded ?Confirmed coenzyme Q10 100 mg capsule 300 mg PO DAILY 12/29/21 06/08/24 (CoQ-10) magnesium citrate 100 mg tablet 750 mg PO DAILY 12/29/21 06/08/24 riboflavin (vitamin B2) 100 mg 200 mg PO DAILY 12/29/21 06/08/24 tablet cholecalciferol (vitamin D3) 100 100 mcg PO DAILY 05/17/22 06/08/24 mcg (4,000 unit) capsule potassium chloride 10 mEq 10 meq PO DAILY #7 caps 05/17/22 06/08/24 capsule,extended release omeprazole 20 mg capsule,delayed 20 mg PO BID #60 caps 06/08/24 release Previous Rx's ?Medication ?Instructions ?Recorded potassium chloride 10 mEq 10 meq PO DAILY #7 caps 05/17/22 capsule,extended release omeprazole 20 mg capsule,delayed 20 mg PO BID #60 caps 06/08/24 release Allergies Allergy/AdvReac Type Severity Reaction Status Date / Time No Known Drug Allergies Allergy Diarrhea Unverified 06/08/24 13:33 milk AdvReac Mild Diarrhea Unverified 06/08/24 13:33 General Stated Complaint: GI Bleed JUSTUS: 3 Exam Narrative Exam Narrative: 1.Const: Well-nourished, Well-developed, appearing stated age 2.Eyes: PERRL, no conjunctival injection, and symmetrical lids. 3.ENT: Atraumatic external nose and ears. Moist MM. Neck: Symmetric, trachea midline, No thyromegaly. 4.CVS: +S1/S2, Peripheral pulses 2+ and equal in all extremities. Brisk capillary refill in all extremities. 5.RESP: Unlabored respiratory effort. Clear to auscultation bilaterally. No wheezes rales or rhonchi 6.GI: Soft, Nontender/Nondistended, No hepatosplenomegaly. No guarding or rebound. No flank or CVA tenderness 7.MSK: Normocephalic/Atraumatic, Extremities w/o deformity or ttp No cyanosis or clubbing, Normal movement of all extremities 8.Skin: Warm, Dry. No rashes or lesions. 9.Neuro: manager printing II-XII grossly intact. Sensation grossly intact, no focal neurologic deficits. 10.Psych: (AAO) x3. Appropriate mood and affect Course Vital Signs Vital signs: Vital Signs Temperature 36.9 C 06/08/24 13:30 Pulse 91 H 06/08/24 13:30 Respiratory Rate 16 06/08/24 13:30 Blood Pressure 191/124 H 06/08/24 13:30 Pulse Oximetry 98 06/08/24 13:30 Temperature 36.9 C 06/08/24 13:30 Pulse 91 H 06/08/24 13:30 Respiratory Rate 16 06/08/24 13:30 Blood Pressure 191/124 H 06/08/24 13:30 Pulse Oximetry 98 06/08/24 13:30 Pain Level 5 06/08/24 13:30 Lab/Test Results Lab/Test Results: Laboratory Tests Range/Units 06/08/24 13:48 WBC (4.4-10.8) 10^3/uL 12.41 H RBC (3.93-5.22) 10^6/uL 5.07 Hgb (11.2-15.7) g/dL 14.5 Hct (36.0-46.0) % 45.0 MCV (80-95) fL 89 MCH (27.0-33.0) pg 28.6 MCHC (32.0-36.0) % 32.2 RDW (11.7-14.6) % 13.1 Plt Count (130-400) 10^3/uL 342 MPV (8.0-11.0) fL 9.1 Immature Gran % % 0.3 Neutrophils % % 65.8 Lymphocytes % % 27.6 Monocytes % % 5.3 Eosinophils % % 0.6 Basophils % % 0.4 Nucleated RBC % (0.0-0.3) % 0.0 Absolute Neutrophils (1.2-6.7) 10^3/uL 8.17 H Absolute Lymphocytes (1.2-3.4) 10^3/uL 3.43 H Absolute Monocytes (0.1-0.8) 10^3/uL 0.66 Absolute Eosinophils (0.0-0.7) 10^3/uL 0.07 Absolute Basophils (0.0-0.2) 10^3/uL 0.05 PT (9.1-11.1) sec 10.1 INR (0.9-1.1) 1.0 APTT (20.6-30.2) sec 29.5 VBG Lactate (<or=2.0) mmol/L 1.2 Sodium (136-145) mmol/L 142 Potassium (3.5-5.1) mmol/L 3.7 Chloride (98-107) mmol/L 105 Carbon Dioxide (21.0-32.0) mmol/L 26.6 Anion Gap (3-11) mmol/L 10.4 BUN (7-18) mg/dL 14 Creatinine (0.55-1.02) mg/dL 0.7 Est GFR (CKD-EPI 2020) (mL/min/1.73m2) 106.62 Glucose (74-106) mg/dL 93 Calcium (8.5-10.1) mg/dL 9.5 Total Bilirubin (0.2-1.0) mg/dL 0.62 AST (15-37) U/L 16 ALT (14-59) U/L 22 Alkaline Phosphatase (46-116) U/L 64 Total Protein (6.4-8.2) g/dL 8.4 H Albumin (3.4-5.0) g/dL 4.3 Medical Decision Making 48-year-old female with no significant past medical history except for previous , back surgery, and endometrial ablation, presents today for evaluation of abdominal cramping and episode of bloody stools. Patient states that they got back from a trip to [place] 3 days ago. The drip had been excellent with no complications. No atypical food, aggressive or excessive exercise, or diarrhea. Today this morning when the patient had her bowel movement she noticed that there was some dark stool present which was atypical for her, and then later in the morning she developed a sudden burst of right flank pain at bed a few minutes later had a bowel movement of bright red blood. Pain resolved on its own, she did have 1 more episode of cramping in the right side of her abdomen, but this again resolved with no subsequent bowel movements. She denies personal or family history of Crohn's disease, ulcerative colitis, or personal history of diverticulosis or diverticulitis. No history of colon cancer. She denies fever or chills. She denies any vomiting. She denies any painful or searing or tearing sensation in her rectum during the bowel movements. No other complaints at this time. She is not on any blood thinners. SHe does not take daily aspirin. Exam demonstrates well-appearing female, no abdominal pain, guarding or rebound. No suprapubic tenderness. Differential is broad, but includes diverticular bl eed, less like ulcerative colitis or Crohn's disease. Upper gastric bleed unlikely with no left upper quadrant abdominal pain, no history of upper GI bleeds, no vomiting or nausea. Likelihood for anal fissure or hemorrhoid is low secondary to the notable amount of blood noted on the picture shown by the patient, and the lack of anal or rectal discomfort. Differential also includes less likely intermittent episodes of mesenteric ischemia, however the patient's cramping happened a few hours after any eating. Will get CT imaging evaluated for mesenteric artery stenosis, diverticulitis, or other acute pathology. Will type and screen, check the patient's hemoglobin status, monitor closely and reassess. 4:09 PM CTA shows no no evidence of mesenteric ischemia, diverticulitis, active diver ticular bleed, colitis, or other acute abnormality. Laboratory workup shows no anemia, platelet dysfunction, or bleeding abnormality through coagulopathy. Differential at this time includes AVM, or less likely diverticular bleed. Less likely gastric ulcer. Out of an abundance of precaution we will start the patient on omeprazole, recommend high-fiber diet, low-fat and low meat diet, and we will place a referral for outpatient colonoscopy and EGD with surgery. With no continued active bleeding, no evidence of hemodynamic instability, I do not see an indication for admission for emergent colonoscopy. Patient will be discharged home. However I did have a long discussion with her regarding reasons for which to return including rebleeding or worsening pain. I have extensively reviewed the treatment plan and discharge instructions with the patient. I have addressed all patient concerns at this time. The patient was made aware of what symptoms to monitor for that would warrant a return to the emergency department. Discussed the plan with the patient, they demonstrate verbal understanding and agreement with our assessment and plan at this time. The documentation in this chart was dictated using [employer] dictation software. Please excuse any dictation errors. FINDINGS: Vascular Structures: Celiac Dearing:No evidence of stenosis. SMA: No evidence of stenosis. Renal Arteries: No evidence of stenosis. There are 2 arteries perfusing each kidney. Aorta: No aneurysm. No dissection. No significant stenosis. No atherosclerotic changes. Iliac Arteries: No evidence of stenosis. Common Femoral Arteries: No evidence of stenosis. Soft Tissues:Unremarkable. Lung bases:No acute findings. Tiny hiatal hernia. Liver: Normal size. Normal density. No measurable mass. Gallbladder and biliary tract: No evidence of calculi. No gallbladder wall thickening. No biliary dilation. Pancreas: Normal density, no abnormal calcifications or inflammatory process. Spleen: Normal. Kidneys: Normal size, contour and axis. No obstructive uropathy. No masses seen. Tiny nonobstructing stone in the mid left kidney. Adrenal glands: No masses seen. Bladder: Nearly empty. No gross wall thickening. No evidence of calculi. No evidence of mass. Bowel: No obstruction or bowel wall thickening. No evidence of diverticulosis. No site of GI bleeding identified. Appendix normal. Normal quantity of stool. Peritoneal cavity: No ascites. No focal collection. No mesenteric inflammatory response. Bones: No acute findings. Lymph nodes: Within normal limits. Reproductive: Unremarkable. IMPRESSION: Normal CT Angiogram of the Abdomen. No site of active GI bleeding identified. No bowel abnormality identified. Quality:SDOH Health Related Social Needs: No Data to Display [facility] All Active Problems (Updated 06/08/24 @ 16:08 by Yogesh Bardales DO) Hematochezia (Acute) Social History Smoking/Tobacco Use Status: Never Smoking risk assessment performed?: Yes Alcohol Intake: former Drug use: Never Substance use type: does not use Do you feel safe at home: Yes Do you feel safe in your relationship?: Yes
[2024-06-08] MEDS: Omnipaque 350 MG/ML 100 ML BTL IJ (15:02)
[2024-06-08] MEDS: Normal Saline - Diluent 50 ML VIAL IJ (15:03)
--- NOTE | 2024-06-09 15:30 | NUR.NOTE ---
Received from [facility] in [place] a prior authorization for omeprazone 20mg capsules. 1 capsule by mouth twice daily. Faxed back to [facility] to send to PCP as the ED does not do prior authorizations. Nursing Note:
== END 2024-06-08 16:20 | disposition home or self-care (01) ==
PROVIDERS: Emergency Provider Student in an Organized Health Care Education/Training Program; PCP Physician Assistant
DX: K62.5 Hemorrhage of anus and rectum (principal); K92.1 Melena
CPT/HCPCS: 36415; 80053; 86850; 86900; 86901; 96360; 96361; 99285; 74174; 83605; 85025; 85610; 85730; 99284; J3490

== ENCOUNTER 2024-09-27 16:31 | Outpatient (REF) | payer BC, SELFPAY ==
--- NOTE | 2024-09-27 15:25 | PAPFT_PTH ---
PATIENT: Zaida Taranog LOC: [facility] U#:[id number] AGE/SX: 49/F ROOM: RE09/27/[address]: Anne Daly : 1975 BED: DIS: 09/27/2024 SPEC #: [id number] RECD: 09/28/24 12:57 STATUS: MORENITA REQ #: [id number] ESHA: 09/27/24 15:[address]: Anne Daly DEPT: [facility] Cytology RECD BY: Sherlyn Donovan Tissues: 1 - CX/ENDOCX FOR PAP SMEARS Procedures: PAP THIN PREP/UVM Screening HPV DNA PROBE Comments: [id number] (HPV 16 & 18/45)
[2024-09-29 10:43] LABS: HIV-1/2 Ag & Ab Screen Negative (Negative)
[2024-09-29 10:50] LABS: Hepatitis C Ab w Rflx HCV PCR Negative (Negative)
== END 2024-09-27 16:32 | disposition home or self-care (01) ==
LOC: NCHCN 16:31
PROVIDERS: PCP Physician Assistant; Visit Provider Physician Assistant
DX: Z11.59 Encounter for screening for other viral diseases (principal); Z11.51 Encounter for screening for human papillomavirus (HPV); Z01.419 Encounter for gynecological examination (general) (routine) without abnormal findings
CPT/HCPCS: 86803; 87389; 88142; 87624

== ENCOUNTER 2025-02-15 17:45 | Outpatient (REF) | payer BC, SELFPAY ==
[2025-02-15 20:44] LABS: ESR 25 mm/hr (0-20)
[2025-02-15 21:06] LABS: TSH (W/Ref FT4) 0.82 uIU/mL (0.55-4.78)
[2025-02-15 21:10] LABS: ALT 16 U/L (10-49); AST 24 U/L (<34); Albumin 4.7 g/dL (3.4-5.0); Alkaline Phosphatase 63 U/L (46-116); Anion Gap 9.4 mmol/L (3-11); BUN 13 mg/dL (9-23); Bilirubin, Total 0.70 mg/dL (0.2-1.2); CO2 26.6 mmol/L (20.0-31.0); Calcium 9.1 mg/dL (8.3-10.6); Chloride 104 mmol/L (98-107); Glucose 97 mg/dL (74-106); Potassium 4.0 mmol/L (3.5-5.1); Sodium 140 mmol/L (136-145); Total Protein 7.8 g/dL (5.7-8.2)
[2025-02-15 21:14] LABS: Hemoglobin A1C 5.5 % (<5.7)
[2025-02-16 18:09] LABS: CRP, High Sensitivity 1.35 mg/L (See Note)
== END 2025-02-15 17:46 | disposition home or self-care (01) ==
LOC: NCHCN 17:45
PROVIDERS: PCP Family Medicine; Visit Provider Physician Assistant
DX: R82.4 Acetonuria (principal)
CPT/HCPCS: 80053; 85652; 86141; 82010; 83036; 84443

== ENCOUNTER 2025-02-16 14:52 | Emergency (ER) | payer BC, SELFPAY ==
[2025-02-16 14:58] VITALS: BP 175/95; PULSE 93; RESP 16; TEMP 36.1; O2SAT 98
--- NOTE | 2025-02-16 15:15 | DI.CT_ITS ---
Exam(s) CT ABDOMEN PELVIS W EXAM: CT ABDOMEN PELVIS W CLINICAL HISTORY: upper abdominal pain. TECHNIQUE: Imaging Protocol: Axial computed tomography images with coronal and sagittal reformatted images were created and reviewed CONTRAST MATERIAL: Intravenous: Omnipaque 350 Contrast volume:100 ml Oral: no COMPARISON: CT CT ABDOMEN PELVIS CTA from 06/08/2024 FINDINGS: ABDOMEN and PELVIS: Lung Bases: No acute findings. Liver: Normal density. No suspicious mass. Gallbladder and biliary tract: No radiodense calculus. No wall thickening or pericholecystic fluid. No biliary dilation. Pancreas: Normal density. No abnormal calcifications or inflammatory process. No evidence of mass. Spleen: Normal. Kidneys: Normal size, contour and axis. No radiodense stones. No obstructive uropathy. No suspicious masses seen. Adrenal glands: No masses seen. Vasculature: Abdominal aorta non-dilated. Soft tissues: Unremarkable. Bladder: No gross wall thickening. No calculi.No focal mass. Bowel: No obstruction. No bowel wall thickening. Appendix normal.Normal quantity of stool. Peritoneal cavity: No ascites. No focal collection. No mesenteric inflammatory response. No free air. Bones: Unremarkable for age. Reproductive organs: Unremarkable. Surgical clips adjacent to the left side of the uterus. Lymph nodes: No pathologically enlarged lymph nodes. IMPRESSION:: No acute abnormality in the abdomen or pelvis. RADIATION DOSE DELIVERED: Total DLP DATA REPOSITORY: All CT scans at this facility are submitted to the National Radiology Data Registry (NRDR) Dose Index Registry (DIR) with the [employer] (ACR). RADIATION OPTIMIZATION: All CT scans at this facility use at least one of these dose optimization techniques: automated exposure control; mA and/or kV adjustment per patient size (includes targeted exams where dose is matched to clinical indication); or iterative reconstruction.
--- NOTE | 2025-02-16 15:21 | W.ED.GENAD ---
Discharge Plan Disposition Patient Disposition: Home Condition: Stable Discharge Details Clinical Impression: Abdominal pain, Pre-syncope, Hypoglycemia Primary Care Provider: Estela Desai ED Provider: German Hussein Home Meds and New Rx's Prescriptions: Continued riboflavin (vitamin B2) 100 mg Tablet 200 mg PO DAILY coenzyme Q10 [CoQ-10] 100 mg Capsule 300 mg PO DAILY magnesium citrate 100 mg Tablet 750 mg PO DAILY cholecalciferol (vitamin D3) 100 mcg (4,000 unit) Capsule 100 mcg PO DAILY potassium chloride 10 mEq capsule, extended release 10 meq PO DAILY Qty: 7 0RF omeprazole 20 mg capsule,delayed release(DR/EC) 20 mg PO BID Qty: 60 0RF Discharge Instructions Additional Instructions: Your blood work and CAT scan did not show any emergent findings. you can try having sugar packets or foods with high sugar content with you in case you have another episode. Follow-up with your primary care provider and also with [facility] as scheduled. If you feel more ill, have new symptoms such as high fevers, persistent vomiting or chest pain return to emergency department for reevaluation. Stand Alone Forms: Portal Information HPI General Mode of arrival: ambulatory. Date/Time Provider Initiated Documentation: 02/16/25 14:54. Limitations to Documentation: no limitations. Information obtained by: patient. History of Present Illness 49 year old F presents to the emergency department with the chief complaint of episodes where she feels sugar is low, described as moderate, Patient started experiencing this month(s) (2) and it has been intermittent. Other factors that worsen symptoms (not eating) . Patient notes no other symptoms.. Patient did receive the following treatments prior to arrival, none Related Data Home Medications Medication Instructions Recorded Confirmed coenzyme Q10 100 mg capsule 300 mg PO DAILY 12/29/21 02/16/25 (CoQ-10) magnesium citrate 100 mg tablet 750 mg PO DAILY 12/29/21 02/16/25 riboflavin (vitamin B2) 100 mg 200 mg PO DAILY 12/29/21 02/16/25 tablet cholecalciferol (vitamin D3) 100 100 mcg PO DAILY 05/17/22 02/16/25 mcg (4,000 unit) capsule potassium chloride 10 mEq 10 meq PO DAILY #7 caps 05/17/22 02/16/25 capsule,extended release omeprazole 20 mg capsule,delayed 20 mg PO BID #60 caps 06/08/24 02/16/25 release Previous Rx's Medication Instructions Recorded potassium chloride 10 mEq 10 meq PO DAILY #7 caps 05/17/22 capsule,extended release omeprazole 20 mg capsule,delayed 20 mg PO BID #60 caps 06/08/24 release Allergies Allergy/AdvReac Type Severity Reaction Status Date / Time No Known Drug Allergies Allergy Diarrhea Verified 07/05/24 13:01 milk AdvReac Mild Diarrhea Verified 07/05/24 13:01 General Stated Complaint: Diabetes JUSTUS: 3 Review of Systems All systems reviewed & are unremarkable except as noted in HPI and below Constitutional Constitutional: Denies chills, Denies fever(s) and Reports weakness Cardiovascular Cardiovascular: Denies chest pain and Denies dyspnea Respiratory Respiratory: Denies cough and Denies dyspnea Gastrointestinal Gastrointestinal: Reports abdominal pain and Reports nausea Neurologic Neurologic: Reports weakness Exam Const General: no acute distress Orientation: alert HENMT Head: normal to inspection Ears: external ears normal General nose exam: external nose normal Mouth: moist mucous membranes Eyes General: appearance normal, both eyes and all related structures Neck Neck: normal visual inspection Resp Effort & Inspection: normal respiratory effort and able to speak in complete sentences Auscultation: clear to auscultation bilaterally Cardio Rate: regular rate GI Palpation: soft and tender Skin General skin exam: no rashes or lesions noted Neuro General: patient alert and patient oriented x3 Extrem General: normal to inspection Psych Mental Status: mental status grossly normal Course Vital Signs Vital signs: Vital Signs Temperature 36.1 C L 02/16/25 14:58 Pulse 93 H 02/16/25 14:58 Respiratory Rate 16 02/16/25 14:58 Blood Pressure 175/95 H 02/16/25 14:58 Pulse Oximetry 98 02/16/25 14:58 Temperature 36.1 C L 02/16/25 14:58 Pulse 93 H 02/16/25 14:58 Respiratory Rate 16 02/16/25 14:58 Blood Pressure 175/95 H 02/16/25 14:58 Blood Pressure Position Sitting 02/16/25 14:58 Pulse Oximetry 98 02/16/25 14:58 Oxygen Delivery Method Room Air 02/16/25 14:58 Oxygen Flow Rate 0 02/16/25 14:58 Pain Level 5 02/16/25 14:58 Medical Decision Making 49-year-old female comes in with several months where she has episodes where she starts to feel shaky and as though she might pass out. She thinks that it could be from being hypoglycemic, she was at work when she elevates episodes but was unable to check her blood sugar. She says that in the morning she will eat breakfast and then shortly after checked her sugar and it will be 90 and sometimes has been 1 was 50. Denies ever completely lose consciousness, no chest pain but has had upper abdominal discomfort intermittently along with nausea. No fevers or chills, no cough. She is speaking full sentences in no distress. Blood glucose fingerstick here is 122. she is mildly tender in the upper left and upper right quadrants without guarding. Unclear etiology for symptoms and if this is truly hypoglycemia, will check CBC CMP troponins given the near syncope with her upper abdominal pain CT abdomen pelvis. Patient has a mild white count otherwise labs are unremarkable. CT also does not show any concerning findings. She is stable and has not had any recurrent symptoms. Unclear if this actually hypoglycemia. Given reassuring workup I feel she is stable for discharge and can follow-up with her PCP and she states she also has a appointment at [facility] endocrinology in March. Return precautions given Differential Diagnosis Differential Diagnosis: Anemia, hypoglycemia, electrolyte abnormality, near syncope Medical Records Medical records reviewed: Yes I reviewed the patient's medical records. PFSH All Active Problems (Updated 02/16/25 @ 18:13 by German Hussein MD) Hypoglycemia (Acute) Pre-syncope (Acute) Abdominal pain (Acute) Social History Smoking/Tobacco Use Status: Never Smoking risk assessment performed?: Yes Alcohol Intake: former Drug use: Never Substance use type: does not use Do you feel safe at home: Yes Do you feel safe in your relationship?: Yes
[2025-02-16 15:36] LABS: Glucose Negative (Negative)
[2025-02-16 16:10] VITALS: BP 175/95; PULSE 93; RESP 16; TEMP 36.1; O2SAT 98
[2025-02-16 16:12] LABS: BE (Venous) 2 mmol/L (-2-3); HCO3 (Venous) 26 mmol/L (23-28); O2 Sat (Venous) 84 %; TCO2 (Venous) 23 mmol/L (24-29); pCO2 (Venous) 40 mmHg (41-51); pO2 (Venous) 46 mmHg
[2025-02-16 16:16] LABS: Abs Immature Grans 0.05 10^3/uL (0.0-0.06); HCT 42.2 % (36.0-46.0); HGB 13.9 g/dL (11.2-15.7); Immature Grans % 0.4 %; MCH 28.0 pg (27.0-33.0); MCHC 32.9 % (32.0-36.0); MCV 85 fL (80-95); MPV 9.1 fL (8.0-11.0); Platelet Count 333 10^3/uL (130-400); RBC 4.96 10^6/uL (3.93-5.22); RDW 13.1 % (11.7-14.6); RDW-SD 40.4 fL; WBC 12.68 10^3/uL (4.4-10.8)
[2025-02-16 16:19] VITALS: BP 172/95; PULSE 93; RESP 18; TEMP 36.8; O2SAT 99
[2025-02-16 16:45] LABS: Magnesium 2.1 mg/dL (1.6-2.6)
[2025-02-16] MEDS: Normal Saline - Diluent 50 ML VIAL IJ (16:47)
[2025-02-16] MEDS: Normal Saline Flush 10 ML SYR IVP (16:47)
[2025-02-16 16:48] LABS: ALT 16 U/L (10-49); AST 24 U/L (<34); Albumin 4.8 g/dL (3.4-5.0); Alkaline Phosphatase 61 U/L (46-116); Anion Gap 10.6 mmol/L (3-11); BUN 9 mg/dL (9-23); Bilirubin, Total 0.80 mg/dL (0.2-1.2); CO2 24.4 mmol/L (20.0-31.0); Calcium 9.3 mg/dL (8.3-10.6); Chloride 105 mmol/L (98-107); Glucose 98 mg/dL (74-106); Potassium 3.8 mmol/L (3.5-5.1); Sodium 140 mmol/L (136-145); Total Protein 7.9 g/dL (5.7-8.2)
[2025-02-16] MEDS: Omnipaque 350 MG/ML 100 ML BTL IJ (16:48)
[2025-02-16 16:50] LABS: TSH (W/Ref FT4) 0.90 uIU/mL (0.55-4.78)
[2025-02-16 17:07] LABS: Troponin I < 3 ng/L (<35)
[2025-02-16 17:12] VITALS: BP 161/82; PULSE 90
[2025-02-16 18:00] LABS: Troponin I < 3 ng/L (<35)
[2025-02-16 18:20] VITALS: BP 151/86; PULSE 89; RESP 18; O2SAT 98
== END 2025-02-16 18:22 | disposition home or self-care (01) ==
PROVIDERS: Emergency Provider Emergency Medicine; PCP Family Medicine
DX: R55 Syncope and collapse (principal); E11.649 Type 2 diabetes mellitus with hypoglycemia without coma; R10.9 Unspecified abdominal pain
CPT/HCPCS: 99284; 99285; 36415; 36416; 82962; 80053; 82805; 74177; 81003; 83735; 84443; 84484; 85025; J3490

== ENCOUNTER 2025-02-28 01:50 | Outpatient (CLI) | payer BC, SELFPAY ==
[2025-03-03 16:17] LABS: Proinsulin, P 7.0 pmol/L (3.6-22)
== END 2025-02-28 01:51 | disposition home or self-care (01) ==
LOC: LBO 01:50
PROVIDERS: PCP Family Medicine; Visit Provider Family Medicine
DX: E16.2 Hypoglycemia, unspecified (principal)
CPT/HCPCS: 36415; 82533; 83525; 84206; 84681